=== PATIENT | male | born 1950 | race Caucasian/White ===

== ENCOUNTER 2021-11-10 09:16 | Emergency (ER) | payer MEDICARE, OTHER ==
[~2021-11-10] VITALS: Ht 172.7 cm; Wt 77.3 kg
[2021-11-10] MEDS ORDERED: LISI10TA22 PO (09:34)
[2021-11-10] MEDS ORDERED: METO1TAB87 PO (09:34)
[2021-11-10] MEDS ORDERED: ECOT81TA5 PO (09:34)
[2021-11-10] MEDS ORDERED: PROTPAK PO (09:34)
[2021-11-10] MEDS ORDERED: NS 1,000 ML IV ONE (10:05)
[2021-11-10 11:45] LABS: BASO % 0.2 % (0.0-1.0); EOS % 0.2 % (0.0-3.0); HEMATOCRIT 35.8 % (42.0-52.0); HEMOGLOBIN 12.5 g/dl (13.5-17.5); LYMPH # 0.8 10^3/uL (1.5-5.0); LYMPH % 16.8 % (24.0-44.0); MEAN CORPUSCULAR HEMOGLOBIN 34.2 pg (27.0-33.0); MEAN CORPUSCULAR HGB CONC 34.9 g/dl (32.0-36.5); MEAN CORPUSCULAR VOLUME 98.1 fl (80.0-96.0); MONO # 0.5 10^3/uL (0.0-0.8); MONO % 10.5 % (2.0-8.0); NEUTROPHILS # 3.6 10^3/uL (1.5-8.5); NEUTROPHILS % 72.1 % (36.0-66.0); PLATELET COUNT, AUTOMATED 138 10^3/uL (150-450); RED BLOOD COUNT 3.65 10^6/uL (4.30-6.10); WHITE BLOOD COUNT 4.9 10^3/uL (4.0-10.0)
[2021-11-10 12:14] LABS: CK-MB VALUE MASS 1.3 NG/ML (<3.6); MB/CK RELATIVE INDEX 1.29 (< OR =4)
[2021-11-10 12:19] LABS: MAGNESIUM LEVEL 2.1 MG/DL (1.8-2.4); THYROID STIMULATING HORMONE 1.37 uIU/ML (0.358-3.740)
[2021-11-10] MEDS ORDERED: ONDANSETRON 4MG 2ML VIAL IV ONE (14:00)
[2021-11-10] MEDS ORDERED: ISOVUE-370 76% 100ML VIAL As Ordered ONE (14:28)
[2021-11-10 15:02] LABS: ALBUMIN 3.5 GM/DL (3.2-5.2); BILIRUBIN,DIRECT 0.4 MG/DL (0.0-0.2); BILIRUBIN,TOTAL 1.1 MG/DL (0.2-1.0); TOTAL PROTEIN 6.3 GM/DL (6.4-8.2)
[2021-11-10 15:13] LABS: HEMOGLOBIN A1c 4.9 %
[2021-11-10 15:17] LABS: RSV AMPLIFICATION NEGATIVE (NEGATIVE)
[2021-11-10] MEDS ORDERED: ONDA4TAB6 PO (15:29)
[2021-11-10 16:04] VITALS: BP 150/70
== END 2021-11-10 16:15 | disposition home or self-care (01) ==
LOC: M ED 09:16
DX: R25.1 Tremor, unspecified (principal); I10 Essential (primary) hypertension; N28.89 Other specified disorders of kidney and ureter; E78.5 Hyperlipidemia, unspecified; Z95.0 Presence of cardiac pacemaker; Z91.030 Bee allergy status; Z88.1 Allergy status to other antibiotic agents; Z88.5 Allergy status to narcotic agent; Z79.82 Long term (current) use of aspirin; Z87.891 Personal history of nicotine dependence; Z79.899 Other long term (current) drug therapy
CPT/HCPCS: 70450; 71046; 71260; 74177; 80047; 80076; 81001; 82140; 82550; 82553; 83036; 83605; 83690; 83735; 84443; 84484; 85025; 87040; 87631; 93005; 96361; 96374; 99284; J2405; Q9967